=== PATIENT | female | born 1985 | race Caucasian/White ===

== ENCOUNTER 2017-05-31 19:53 | Emergency (ER) | payer BC ==
[~2017-05-31] VITALS: Ht 167.6 cm; Wt 62.5 kg
[~2017-05-31 19:53] MED LIST: IBUP-1542 PO; IBUP400T22 PO; PRED50TA PO
[2017-05-31 19:56] VITALS: Ht 167.6 cm; Wt 62.5 kg
[2017-05-31] MEDS ORDERED: HYDR-906 PO (20:42)
[2017-05-31] MEDS ORDERED: CYCL-319 PO (20:42)
[2017-05-31] MEDS ORDERED: IBUP-1542 PO (20:42)
--- NOTE | 2017-05-31 20:53 | ERD ---
ER Documentation Chief Complaint Date/Time DATE: 05/31/17 TIME: 20:48 Chief Complaint Rt neck and shoulder pain x3 days. denies trauma HPI 32-year-old female presents here in emergency department for complaints of right neck pain radiating to the right shoulder area for 3 days. Patient's slept in 1 position 3 days ago, started described an the pain as sharp pain, 6/ 10 scale, is worse upon movement. Patient denies any numbness or tingling. Patient denies any fever or chills. Patient denies any trauma and affected area. ROS All systems reviewed and are negative except as per history of present illness. Medications Home Meds Active Scripts Hydrocodone/Acetaminophen ([place] 5-325 Tablet) 1 Each Tablet, 1 TAB PO Q6H Y for sev, #20 TAB Prov:NELSON EUGENE NP 05/31/17 Cyclobenzaprine Hcl* (Cyclobenzaprine Hcl*) 10 Mg Tablet, 10 MG PO TID, #15 TAB Prov:NELSON EUGENE NP 05/31/17 Ibuprofen* (Motrin*) 600 Mg Tab, 600 MG PO Q6H Y for PAIN AND OR ELEVATED TEMP, #30 TAB Prov:NELSON EUGENE NP 05/31/17 Prednisone* (Prednisone*) 50 Mg Tablet, 50 MG PO DAILY, #3 TAB Prov:NELSON EUGENE NP 02/21/16 Ibuprofen* (Motrin*) 600 Mg Tab, 600 MG PO Q6H Y for PAIN AND OR ELEVATED TEMP, #30 TAB Prov:NELSON EUGENE NP 02/21/16 Ibuprofen* (Motrin*) 400 Mg Tab, 400 MG PO Q6, #30 TAB 0 Refills Prov:ISA FREITAS PA-C 02/17/16 Reported Medications [none] Unknown Strength No Conflict Check 02/21/16 Allergies Allergies: Coded Allergies: No Known Allergy (Unverified , 02/17/16) PMhx/Soc Medical and Surgical Hx: pt denies Medical Hx, pt denies Surgical Hx History of Surgery: No Anesthesia Reaction: No Hx Neurological Disorder: No Hx Respiratory Disorders: No Hx Cardiac Disorders: No Hx Psychiatric Problems: No Hx Miscellaneous Medical Probl: No Hx Alcohol Use: No Hx Substance Use: No Hx Tobacco Use: No Smoking Status: Never smoker FmHx Family History: No coronary disease, No diabetes, No other Physical Exam Vitals Vital Signs Date Time Temp Pulse Resp B/P Pulse Ox O2 Delivery O2 Flow Rate FiO2 05/31/17 19:56 97.2 74 18 127/81 100 Physical Exam GENERAL: The patient is well developed and appropriate for usual state of health, in no apparent distress. NECK: Muscle spasms noted in the right paraspinal aspect of the cervical spine , mild tenderness on palpation of the sternocleidomastoid, noted spasms. Able to do full range of motion without any restriction but with pain. CHEST: Clear to auscultation bilaterally. There are no rales, wheezes or rhonchi. HEART: Regular rate and rhythm. No murmurs, clicks, rubs or gallops. No S3 or S4. ABDOMEN: Soft, nontender and nondistended. Good bowel sounds. No rebound or guarding. No gross peritonitis. No gross organomegaly or masses. No Navarrete sign or McBurney point tenderness. BACK: No midline or flank tenderness. EXTREMITIES: Equal pulses bilaterally. There is no peripheral clubbing, cyanosis or edema. No focal swelling or erythema. Full range of motion. Grossly neurovascularly intact. NEURO: Alert and oriented. Cranial nerves 2-12 intact. Motor strength in all 4 extremities with 5/5 strength. Sensation grossly intact. Normal speech and gait. SKIN: There is no apparent rash or petechia. The skin is warm and dry. HEMATOLOGIC AND LYMPHATIC: There is no evidence of excessive bruising or lymphedema. No gross cervical, axillary, or inguinal lymphadenopathy. Procedures/MDM Medical decision making: Patient symptoms most likely neck strain. Possible stiff neck. No suspicion for any fractures, did not have any trauma on affected areas. Radiology exam is not indicated at this time. No suspicion for meningitis , negative Brudzinski or Kernig sign, no fever. Prescription was given for Flexeril, [place] ibuprofen, is advised to apply warm compress on affected area, muscles spasms noted affected area, patient is advised to return to emergency department for any worsening symptoms. Follow up with primary doctor in 2-3 days reevaluation of symptoms. Departure Diagnosis: Primary Impression: Neck strain Encounter type: initial encounter Qualified Code: S16.1XXA - Neck strain, initial encounter Condition: Stable Patient Instructions: Neck Sprain/Strain NELSON EUGENE NP May 31, 2017 20:53
[2017-05-31 21:13] VITALS: BP 127/80; PULSE 99; RESP 16
== END 2017-05-31 21:14 | disposition home or self-care (01) ==
LOC: FTE 19:53
DX: S16.1XXA Strain of muscle, fascia and tendon at neck level, initial encounter (principal); X58.XXXA Exposure to other specified factors, initial encounter; Y92.9 Unspecified place or not applicable
CPT/HCPCS: 99284